=== PATIENT | male | born 1965 | race Caucasian/White ===

== ENCOUNTER 2020-01-10 13:28 | Outpatient (CLI) | payer OTHER ==
--- NOTE | 2020-01-10 14:24 | CT ---
CT ABDOMEN AND PELVIS WITHOUT CONTRAST: 01/10/20 COMPARISON: None. HISTORY: Microhematuria. TECHNIQUE: Multiple contiguous axial images were obtained in a CT of the abdomen and pelvis without contrast. Sa gittal and coronal reformats were performed. FINDINGS: No calcifications are seen in the either kidney or urinary collecting system. No obvious abnormality of the urinary bladder is seen. The liver, gallbladder, adrenal glands, spleen, and pancreas are unremarkable, although evaluation is limited without IV contrast. There are scattered diverticula in the colon. The small bowel and appendix are unremarkable. no abdom inal or pelvic lymphadenopathy area seen. There is a 2.4 cm fat containing left inguinal hernia. The visualized inferior thorax is unremarkable . Mild degenerative changes are seen in the spine. IMPRESSION: 1. No significant renal or ureteral collecting system abnormality. 2. Diverticulosis. 3. Left inguinal hernia. POS: EAA
== END 2020-01-10 13:29 | disposition home or self-care (01) ==
LOC: BICCT 13:28
PROVIDERS: ATTEND Physician Assistant
DX: R31.9 Hematuria, unspecified (principal); K57.30 Diverticulosis of large intestine without perforation or abscess without bleeding; K40.90 Unilateral inguinal hernia, without obstruction or gangrene, not specified as recurrent
CPT/HCPCS: 74176

== ENCOUNTER 2021-08-24 12:58 | Outpatient (CLI) | payer OTHER | END 2021-08-24 12:59 | disposition home or self-care (01) | LOC: BICULT 12:58 | PROVIDERS: ATTEND Nurse Practitioner Family | DX: R31.9 Hematuria, unspecified (principal) | CPT/HCPCS: 76770 ==

== ENCOUNTER 2024-09-06 08:33 | Outpatient (CLI) | payer OTHER ==
[2024-09-06] MEDS ORDERED: Iopamidol 370 76% 100 ML VIAL ONE (11:24)
== END 2024-09-06 08:34 | disposition home or self-care (01) ==
LOC: CT 08:33
PROVIDERS: ATTEND Urology
DX: R31.29 Other microscopic hematuria (principal); K57.30 Diverticulosis of large intestine without perforation or abscess without bleeding
CPT/HCPCS: 74178; Q9967